=== PATIENT | male | born 1965 | race Caucasian/White ===

== ENCOUNTER 2018-09-15 05:16 | Emergency (ER) | payer MEDICAID ==
[~2018-09-15] VITALS: Ht 172.7 cm; Wt 79.0 kg
[2018-09-15 05:20] VITALS: Ht 172.7 cm; Wt 79.0 kg
[2018-09-15] MEDS ORDERED: IBUP800T48 PO (06:11)
--- NOTE | 2018-09-15 06:13 | ERD ---
ER Documentation Chief Complaint Chief Complaint C/O LT GROIN PAIN X2 HRS HPI This is a 53-year-old male who presents to the emergency room for evaluation of pain in the left groin for the past 2 hours. The patient states that he was helping his friend lift a television set and felt pain in the left groin. He states that it is a sharp pain which is been intermittent since it occurred. He denies any direct trauma to his abdomen or to the groin. Denies any testicular pain, urinary frequency, urgency, or hematuria. ROS All systems reviewed and are negative except as per history of present illness. Medications Home Meds Active Scripts Ibuprofen* (Motrin*) 800 Mg Tab, 800 MG PO Q6H PRN for PAIN AND OR ELEVATED TEMP, #30 TAB Prov:COREY BURNS DO 09/15/18 Allergies Allergies: Coded Allergies: No Known Allergy (Unverified , 09/15/18) PMhx/Soc Medical and Surgical Hx: pt denies Medical Hx, pt denies Surgical Hx Hx Alcohol Use: No Hx Substance Use: No Hx Tobacco Use: No Smoking Status: Never smoker Physical Exam Vitals Vital Signs Date Temp Pulse Resp B/P (MAP) Pulse Ox O2 O2 Flow FiO2 Time Delivery Rate 09/15/18 97.8 69 19 185/117 97 05:20 (139) Physical Exam INITIAL VITAL SIGNS: Reviewed by me GENERAL: The patient is well developed and appropriate for usual state of health in no apparent distress HEENT: Pupils equal, round, and reactive to light. EOMI. There is no scleral icterus. NECK: C-spine is soft and supple, there is no meningismus. There is no cervical lymphadenopathy. LUNGS: Clear to auscultation bilaterally. There are no rales, wheezes or rhonchi. HEART: Regular rate and rhythm, no murmurs, clicks, rubs or gallops. ABDOMEN: Soft, non-tender, non-distended. There are bowel sounds in all four quadrants. No rebound or guarding. No signs of hernia EXTREMITIES: There is no peripheral cyanosis or edema. No focal swelling or erythema. NEUROLOGICAL: The patient moves all four extremities with 5/5 strength. Cranial nerves II - XII are intact. Normal gait. Alert and oriented SKIN: There is no apparent rash or petechiae. : No testicular tenderness to palpation, no tenderness of the epididymis, cremasteric reflex intact HEME/LYMPHATIC: There is no evidence of excessive bruising or lymphedema. PSYCHIATRIC: The patient does not appear anxious or depressed. Results 24 hrs Current Medications Medications Dose Sig/Jerry Start Time Status Last (Trade) Ordered Route PRN Stop Time Admin Dose Reason Admin Ibuprofen 800 mg ONCE ONCE 09/15/18 (Motrin) PO 06:30 09/15/18 06:31 Procedures/MDM This 53-year-old male presents to the ER for evaluation of pain in the left groin. On my exam the patient has no swelling, no erythema, no signs of hernia. He is nontender to palpation in that area. I did offer this patient a CT to rule out any hernia however the patient states that he would like to forego CT would like some medicine for pain. The patient was given Motrin, and will be discharged home with a prescription for Motrin at this time. Departure Diagnosis: Primary Impression: Injury of groin Condition: Stable Patient Instructions: Groin Strain Referrals: [facility] YOU HAVE RECEIVED A MEDICAL SCREENING EXAM AND THE RESULTS INDICATE THAT YOU DO NOT HAVE A CONDITION THAT REQUIRES URGENT TREATMENT IN THE EMERGENCY DEPARTMENT. FURTHER EVALUATION AND TREATMENT OF YOUR CONDITION CAN WAIT UNTIL YOU ARE SEEN IN YOUR DOCTORS OFFICE WITHIN THE NEXT 1-2 DAYS. IT IS YOUR RESPONSIBILITY TO MAKE AN APPOINTMENT FOR FOLOW-UP CARE. IF YOU HAVE A PRIMARY DOCTOR --you should call your primary doctor and schedule an appointment IF YOU DO NOT HAVE A PRIMARY DOCTOR YOU CAN CALL OUR PHYSICIAN REFERRAL HOTLINE AT IF YOU CAN NOT AFFORD TO SEE A PHYSICIAN YOU CAN CHOSE FROM THE FOLLOWING [facility] [address] [facility]. [facility] [address] [facility]. [facility] [address] [facility] [address] [facility] [address] [facility]. [facility]. [address] Additional Instructions: Call your primary care doctor TOMORROW for an appointment during the next 1-2 days.See the doctor sooner or return here if your condition worsens before your appointment time. COREY BURNS DO Sep 15, 2018 06:13
[2018-09-15] MEDS ORDERED: IBUPROFEN 800 MG TAB PO ONE (06:30)
[2018-09-15] MEDS ORDERED: HYDROCODONE/APAP (5/325) TAB PO ONE (07:00)
[2018-09-15 07:11] VITALS: BP 164/78; PULSE 56; RESP 16
== END 2018-09-15 07:33 | disposition home or self-care (01) ==
LOC: E/R 05:16
DX: S39.91XA Unspecified injury of abdomen, initial encounter (principal); X50.0XXA Overexertion from strenuous movement or load, initial encounter; Y92.9 Unspecified place or not applicable
CPT/HCPCS: 36415; Z7502; Z7610

== ENCOUNTER 2019-01-01 11:45 | Emergency (ER) | payer SELFPAY ==
[~2019-01-01] VITALS: Ht 177.8 cm; Wt 76.0 kg
[~2019-01-01 11:45] MED LIST: IBUP800T48 PO
[2019-01-01 11:56] VITALS: Ht 177.8 cm; Wt 76.0 kg
[2019-01-01] MEDS ORDERED: NALOXONE (0.4 MG/ML) INJ ONE (12:05)
[2019-01-01 12:30] VITALS: BP 99/57; PULSE 62; RESP 16
[2019-01-01] MEDS ORDERED: NALOXONE (0.4 MG/ML) INJ IV ONE (12:30)
--- NOTE | 2019-01-01 13:45 | ERD ---
ER Documentation Chief Complaint Chief Complaint BIB RA , POSSIBLE GHB USE, ALOC , LAC ON RT EYELID , ABRASIONS ON ARM HPI This is a 53-year-old male who presents for laceration to his right upper eyelid. Patient was brought in by ambulance for possible GHB use. Initially patient presented somnolent, history limited secondary to patient's altered mental state. ROS All systems reviewed and are negative except as per history of present illness. Medications Home Meds Active Scripts Ibuprofen* (Motrin*) 800 Mg Tab, 800 MG PO Q6H PRN for PAIN AND OR ELEVATED TEMP, #30 TAB Prov:COREY BURNS DO 09/15/18 Allergies Allergies: Coded Allergies: No Known Allergy (Unverified , 09/15/18) PMhx/Soc Medical and Surgical Hx: pt denies Medical Hx, pt denies Surgical Hx Hx Alcohol Use: Yes Hx Substance Use: No Hx Tobacco Use: Yes Smoking Status: Current every day smoker Physical Exam Vitals Vital Signs Date Temp Pulse Resp B/P (MAP) Pulse Ox O2 O2 Flow FiO2 Time Delivery Rate 01/01/19 62 16 99/57 (71) 100 Nasal 2.0 12:30 Cannula 01/01/19 98.1 61 16 133/77 98 11:56 (95) Physical Exam Const: Patient asleep in room, snoring Head: Atraumatic Eyes: Normal Conjunctiva, pupils are pinpoint, reactive to light ENT: Normal External Ears, Nose and Mouth. There is superficial 0.5 cm laceration to the right lateral eyelid, there is no ocular involvement, there is no periorbital ecchymosis Neck: Full range of motion. No meningismus. Resp: Clear to auscultation bilaterally, no wheezes rales rhonchi Cardio: Regular rate and rhythm, no murmurs Abd: Soft, non tender, non distended. Normal bowel sounds Skin: No petechiae or rashes Back: No midline or flank tenderness Ext: No cyanosis, or edema Neur: Asleep, minimally arousable to pain Psych: Unable to assess Result Diagram: 01/01/19 1212 01/01/19 1212 Results 24 hrs Laboratory Tests Test 01/01/19 12:11 01/01/19 12:12 Urine Color YELLOW Urine Clarity CLEAR Urine pH 5.0 Urine Specific Odonnell 1.013 Urine Ketones TRACE mg/dL Urine Nitrite NEGATIVE mg/dL Urine Bilirubin NEGATIVE mg/dL Urine Urobilinogen NEGATIVE mg/dL Urine Leukocyte Esterase NEGATIVE Sal/ul Urine Hemoglobin NEGATIVE mg/dL Urine Glucose NEGATIVE mg/dL Urine Total Protein NEGATIVE mg/dl White Blood Count 7.9 10^3/ul Red Blood Count 4.24 10^6/ul Hemoglobin 13.6 g/dl Hematocrit 41.2 % Mean Corpuscular Volume 97.2 fl Mean Corpuscular Hemoglobin 32.1 pg Mean Corpuscular Hemoglobin Concent 33.0 g/dl Red Cell Distribution Width 12.8 % Platelet Count 240 10^3/UL Mean Platelet Volume 9.3 fl Immature Granulocytes % 0.400 % Neutrophils % 67.0 % Lymphocytes % 20.6 % Monocytes % 8.1 % Eosinophils % 3.3 % Basophils % 0.6 % Nucleated Red Blood Cells % 0.0 /100WBC Immature Granulocytes # 0.030 10^3/ul Neutrophils # 5.3 10^3/ul Lymphocytes # 1.6 10^3/ul Monocytes # 0.6 10^3/ul Eosinophils # 0.3 10^3/ul Basophils # 0.1 10^3/ul Nucleated Red Blood Cells # 0.0 10^3/ul Sodium Level 144 mmol/L Potassium Level 3.9 mmol/L Chloride Level 109 mmol/L Carbon Dioxide Level 24 mmol/L Anion Gap 11 Blood Urea Nitrogen 14 mg/dl Creatinine 1.09 mg/dl Est Glomerular Filtrat Rate mL/min > 60 mL/min Glucose Level 147 mg/dl Calcium Level 9.4 mg/dl Total Bilirubin 0.8 mg/dl Direct Bilirubin 0.00 mg/dl Indirect Bilirubin 0.8 mg/dl Aspartate Amino Transf (AST/SGOT) 26 IU/L Alanine Aminotransferase (ALT/SGPT) 25 IU/L Alkaline Phosphatase 100 IU/L Troponin I < 0.012 ng/ml Total Protein 7.7 g/dl Albumin 4.3 g/dl Globulin 3.40 g/dl Albumin/Globulin Ratio 1.26 Salicylates Level < 1.0 mg/dl Acetaminophen Level < 10.0 ug/ml Ethyl Alcohol Level < 10.0 mg/dl Current Medications Medications Dose Sig/Jerry Start Time Status Last (Trade) Ordered Route PRN Stop Time Admin Dose Reason Admin Naloxone 0.4 mg STK-MED 01/01/19 DC HCl ONCE .ROUTE 12:05 01/01/19 (Narcan) 12:06 Naloxone 0.4 mg ONCE ONCE 01/01/19 DC 01/01/19 HCl IV 12:30 01/01/19 12:08 (Narcan) 12:38 Procedures/MDM 53-year-old male presents for evaluation of altered mental state. Patient was monitored in the ED, and subsequently he returned to his mental baseline and was ambulatory. He had lab work and a CT brain which were all unremarkable. His salicylate were also negative. When I reevaluated the patient, he denies any suicidal or homicidal ideations, he wished to go home. I did offer to repair his laceration with skin adhesive and washout, the patient declined, stating that he would go washout at home, at discharge the patient was ambulatory with a steady gait and in no distress. Departure Diagnosis: Primary Impression: Acute drug overdose Encounter type: sequela Injury intent: undetermined intent Qualified Codes: T50.904S - Poisoning by unspecified drugs, medicaments and biological substances, undetermined, sequela Additional Impression: Laceration Condition: Stable LENO LUIS MD Jan 01, 2019 13:45
== END 2019-01-01 14:14 | disposition home or self-care (01) ==
LOC: E/R 11:45
DX: S01.111A Laceration without foreign body of right eyelid and periocular area, initial encounter (principal); T50.90 Poisoning by, adverse effect of and underdosing of unspecified drugs, medicaments and biological substances; F17.210 Nicotine dependence, cigarettes, uncomplicated; R40.2122 Coma scale, eyes open, to pain, at arrival to emergency department; R40.2242 Coma scale, best verbal response, confused conversation, at arrival to emergency department; R40.2342 Coma scale, best motor response, flexion withdrawal, at arrival to emergency department; X58.XXXA Exposure to other specified factors, initial encounter; Y92.9 Unspecified place or not applicable
CPT/HCPCS: 12011; 36415; 70450; 80053; 80307; 81003; 84484; 85025; 93005; 96374; 99285; J2310

== ENCOUNTER 2019-02-23 03:59 | Emergency (ER) | payer SELFPAY ==
[~2019-02-23] VITALS: Ht 172.7 cm; Wt 75.0 kg
[2019-02-23 04:05] VITALS: Ht 172.7 cm; Wt 75.0 kg
[2019-02-23] MEDS ORDERED: LIDOCAINE 1%/EPI 30 ML INJ INJ STA (04:14)
[2019-02-23] MEDS ORDERED: ACETAMINOPHEN 325 MG TAB PO ONE (04:30)
[2019-02-23] MEDS ORDERED: DIPHTH/TET/ACEL PERTUSS (ADULT) 0.5 ML VIAL IM* ONE (04:30)
[2019-02-23] MEDS ORDERED: LEVETIRACETAM 1000 MG (PMX) 100 ML IVPB ONE (07:00)
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
[2019-02-23] MEDS ORDERED: CEFAZOLIN 2 GM/50 ML (PMX) 50 ML IVPB ONE (07:30)
[2019-02-23 08:20] VITALS: BP 115/91; PULSE 90; RESP 18
== END 2019-02-23 09:15 | disposition short-term general hospital (02) ==
LOC: E/R 03:59
DX: S06.6X0A Traumatic subarachnoid hemorrhage without loss of consciousness, initial encounter (principal); S01.01XA Laceration without foreign body of scalp, initial encounter; G93.89 Other specified disorders of brain; X99.8XXA Assault by other sharp object, initial encounter; Y92.9 Unspecified place or not applicable; Z23 Encounter for immunization
CPT/HCPCS: 12006; 36415; 70450; 80048; 80307; 85025; 85610; 85730; 90471; 90715; 96374; 96375; 99285; J0690; J1953